=== PATIENT | male | born 1955 | race Caucasian/White ===

== ENCOUNTER 2023-09-11 12:06 | Emergency (ER) | payer OTHER ==
[~2023-09-11] VITALS: Ht 172.7 cm; Wt 72.0 kg
[2023-09-11 12:12] VITALS: O2SAT 100
[2023-09-11 12:40] LABS: BASOPHILS % 1.2 % (0.0-2.0); DIFFERENTIAL COMMENT 0; HEMATOCRIT. 32.7 % (42.0-52.0); HEMOGLOBIN. 11.2 g/dL (14.0-18.0); LYMPHOCYTES % 37.8 % (20.0-50.0); MEAN CORPUSCULAR HEMOGLOBIN 31.8 pg (28.0-32.0); MEAN CORPUSCULAR HGB CONC 34.2 g/dL (31.0-37.0); MEAN CORPUSCULAR VOLUME 92.8 fL (80.0-94.0); MEAN PLATELET VOLUME 9.9 fl (7.4-10.4); MONOCYTES % 10.1 % (2.0-8.0); NEUTROPHILS % 46.9 % (40.0-76.0); PLATELET 238 x1000/uL (130-400); RED BLOOD CELL COUNT 3.53 mill/uL (4.7-6.1); RED CELL DISTRIBUTION WIDTH 13.3 % (11.6-14.6); WHITE BLOOD COUNT 10.9 x1000/uL (4.5-11.0)
[2023-09-11 12:52] LABS: ALANINE AMINOTRANSFERASE 23 IU/L (10-49); ALBUMIN 4.2 g/dL (3.2-4.8); ASPARTATE AMINOTRANSFERASE 24 IU/L (<34); BILIRUBIN TOTAL 0.8 mg/dL (0.1-1.0); CALCIUM 8.4 mg/dL (8.7-10.4); CARBON DIOXIDE 30 mEq/L (21-32); CHLORIDE 97 mEq/L (98-107); CREATININE 2.2 mg/dL (0.6-1.3); GLUCOSE 107 mg/dL (70-105); POTASSIUM 3.4 mEq/L (3.5-5.1); PROTEIN TOTAL 7.5 g/dL (6.0-8.3); SODIUM 133 mEq/L (136-145); TROPONIN I HIGH SENSITIVITY 19 ng/L (3.0-53); UREA NITROGEN BLOOD 13 mg/dL (9-23)
[2023-09-11 13:01] LABS: INR 0.9; PROTHROMBIN TIME 10.4 sec (9.6-11.0)
[2023-09-11] MEDS: LABETALOL 5MG/ML SYR 20 MG/4 ML SYRINGE IV ONE ×3 (13:15→18:18)
[2023-09-11] MEDS: ONDANSETRON 4MG ODT PO ONE (15:04)
[2023-09-11] MEDS: IBUPROFEN 400MG TABLET PO ONE (15:04)
[2023-09-11 15:21] LABS: CLARITY URINE CLEAR (CLEAR); COLOR URINE YELLOW (YELLOW); GLUCOSE URINE NEGATIVE (NEGATIVE); KETONES URINE NEGATIVE (NEGATIVE); LEUKOCYTE ESTERASE URINE NEGATIVE (NEGATIVE); NITRITE URINE NEGATIVE (NEGATIVE); OCCULT BLOOD URINE NEGATIVE (NEGATIVE); PH URINE 8.5 (4.5-8.0); PROTEIN URINE 3+ (NEGATIVE); SPECIFIC GRAVITY URINE 1.014 (1.005-1.030); UROBILINOGEN URINE 0.2 E.U./dL (0.2-1.0)
[2023-09-11 15:36] LABS: BACTERIA URINE NONE SEEN; RBC URINE 0-2 /hpf (0-2); SQUAMOUS EPITHELIAL CELL URINE 1+ /lpf (RARE/1+); WBC URINE 0-2 /hpf (0-2)
[2023-09-11 16:04] LABS: TROPONIN I HIGH SENSITIVITY 19 ng/L (3.0-53)
[2023-09-11] MEDS ORDERED: NICARDIPINE 40MG/200ML PREMIX 200 ML IV STA (18:03)
[2023-09-11 18:26] LABS: TROPONIN I HIGH SENSITIVITY 19 ng/L (3.0-53)
[2023-09-11 21:12] VITALS: BP 167/70; PULSE 71; RESP 17; TEMP 98.6
== END 2023-09-11 21:36 | disposition short-term general hospital (02) ==
LOC: ER 12:06 → CANBEDREQ 15:05 → ER 21:36
DX: R06.02 Shortness of breath (principal); E11.22 Type 2 diabetes mellitus with diabetic chronic kidney disease; I12.0 Hypertensive chronic kidney disease with stage 5 chronic kidney disease or end stage renal disease; N18.6 End stage renal disease; E78.00 Pure hypercholesterolemia, unspecified
CPT/HCPCS: 99285; 71275; 74174; 96374; 71045; 80053; 81003; 83880; 83690; 85025; 85610; 84484; 70496; 70498; 93005; 70450; 96376; 36415; Q0162; J3490

== ENCOUNTER 2024-05-08 09:37 | Emergency (ER) | payer OTHER ==
[~2024-05-08] VITALS: Ht 172.7 cm; Wt 82.0 kg
[~2024-05-08 09:37] MED LIST: AMLO10TA80 MT; ASPI-1406 PO; LEVO750T68 MT; LIP40 MT; LOSA50TA41 PO; METO-539 MT; PROP1.5D EACHEYE; RIVA1PAT11 TP
[2024-05-08 09:38] VITALS: O2SAT 99
[2024-05-08 11:07] LABS: BASOPHILS % 0.5 % (0.0-2.0); EOSINOPHILS % 3.6 % (0.0-5.0); HEMOGLOBIN. 11.3 g/dL (14.0-18.0); LYMPHOCYTES % 31.9 % (20.0-50.0); MEAN CORPUSCULAR HEMOGLOBIN 32.2 pg (28.0-32.0); MEAN CORPUSCULAR HGB CONC 34.2 g/dL (31.0-37.0); MEAN PLATELET VOLUME 9.3 fl (7.4-10.4); MONOCYTES % 10.7 % (2.0-8.0); NEUTROPHILS % 53.3 % (40.0-76.0); PLATELET 269 x1000/uL (130-400); RED BLOOD CELL COUNT 3.51 mill/uL (4.7-6.1); RED CELL DISTRIBUTION WIDTH 13.2 % (11.6-14.6); WHITE BLOOD COUNT 13.6 x1000/uL (4.5-11.0)
[2024-05-08 11:15] LABS: CHLORIDE 99 mEq/L (98-107); POTASSIUM 4.3 mEq/L (3.5-5.1); SODIUM 130 mEq/L (136-145)
[2024-05-08 11:16] LABS: CARBON DIOXIDE 29 mEq/L (21-32)
[2024-05-08 11:17] LABS: CALCIUM 9.1 mg/dL (8.7-10.4)
[2024-05-08 11:21] LABS: CREATININE 4.7 mg/dL (0.6-1.3); GLUCOSE 121 mg/dL (70-105); UREA NITROGEN BLOOD 30 mg/dL (9-23)
[2024-05-08 11:22] LABS: TROPONIN I HIGH SENSITIVITY 13 ng/L (3.0-53)
[2024-05-08 12:09] VITALS: BP 167/84; PULSE 67; RESP 15; TEMP 37.05852; O2SAT 99
[2024-05-08 13:40] LABS: TROPONIN I HIGH SENSITIVITY 14 ng/L (3.0-53)
== END 2024-05-08 15:23 | disposition short-term general hospital (02) ==
LOC: ER 09:42 → CANBEDREQ 12:17 → ER 15:23
DX: R07.89 Other chest pain (principal); N18.6 End stage renal disease; I10 Essential (primary) hypertension; E11.9 Type 2 diabetes mellitus without complications; E78.00 Pure hypercholesterolemia, unspecified; Z79.899 Other long term (current) drug therapy; Z79.82 Long term (current) use of aspirin
CPT/HCPCS: 80048; 83880; 85025; 84484; 36415; 71045; 93005; 99291; Z7610